=== PATIENT | female | born 1950 | race Two or more races ===

== ENCOUNTER 2018-12-25 00:32 | Emergency (ER) | payer OTHER ==
[~2018-12-25] VITALS: Ht 152.4 cm; Wt 74.8 kg
[2018-12-25] MEDS ORDERED: LEVOTHYROXINE25 MCG (00:37)
[2018-12-25] MEDS ORDERED: JANUMET 50-1,01 EACH (00:37)
[2018-12-25] MEDS ORDERED: GLIMEPIRIDE1 MG (00:38)
== END 2018-12-25 04:37 | disposition home or self-care (01) ==
LOC: ER 00:32
DX: S81.021A Laceration with foreign body, right knee, initial encounter (principal); W45.8XXA Other foreign body or object entering through skin, initial encounter; Y93.89 Activity, other specified; Y92.59 Other trade areas as the place of occurrence of the external cause; Y99.8 Other external cause status